=== PATIENT | female | born 1965 | race Caucasian/White ===

== ENCOUNTER 2017-01-06 06:33 | Day surgery (SDC) | payer BC ==
[~2017-01-06] VITALS: Ht 160 cm; Wt 80.5 kg
[~2017-01-06 06:33] MED LIST: AMLO-145 PO
[2017-01-06] MEDS ORDERED: MINTOX (07:38)
[2017-01-06] MEDS ORDERED: [UNRECOGNIZED DRUG - OTHER] (07:38)
[2017-01-06] MEDS ORDERED: METOCLOPRAMIDE (07:38)
[2017-01-06] MEDS ORDERED: CLONAZEPAM (07:38)
[2017-01-06] MEDS ORDERED: TEMAZEPAM (07:38)
[2017-01-06] MEDS ORDERED: OMEPRAZOLE (07:38)
[2017-01-06] MEDS ORDERED: HYOSCYAMINE (07:38)
[2017-01-06] MEDS ORDERED: DOCUSATE SODIUM (07:38)
[2017-01-06] MEDS ORDERED: METFORMIN (07:38)
--- NOTE | 2017-01-06 08:56 | OPPN ---
Date/Time of Note Date/Time of Note DATE: 01/06/17 TIME: 08:54 Operative Report Preoperative Diagnosis Epigastric pain and colon cancer screening Postoperative Diagnosis Epigastric pain and colon cancer screening Operation/Procedure Performed 1. EGD with a biopsy gastritis, duodenitis 2. Colonoscopy with the hot snare polypectomy Ascending colon polyp 2 cm hot snare polypectomy, transverse colon 2 cm hot snare polypectomy Poor prep Hemorrhoids Provider: TRACY GRANT MD Anesthesia Type: MAC Estimated blood loss: none Transfusion Required: no Specimen: none Grafts/Implants: none Complications: no TRACY GRANT MD Jan 06, 2017 08:56
[2017-01-06 09:35] VITALS: BP 138/79; PULSE 66; RESP 18
--- NOTE | 2017-01-06 10:19 | GILP ---
DATE OF PROCEDURE: 01/04/2017 PROCEDURE PERFORMED: Esophagogastroduodenoscopy with biopsy and colonoscopy with polypectomy. INDICATIONS FOR PROCEDURE: A 51-year-old female undergoing this procedure for epigastric pain, persistent for last few months and a colonoscopy for colon cancer screening. She also complains of nausea and heartburn. The purpose of this procedure is to evaluate the upper GI tract to find out the cause of her epigastric pain and nausea and colonoscopy for colon cancer screening. The risks of the procedure, and related complications, and anesthetic risks, alternatives discussed. Informed consent was obtained. DESCRIPTION OF PROCEDURE: The patient was brought to the GI lab, sedated by Dr. Melissa. After optimal sedation, scope was passed with much ease into the esophagus, which was grossly within normal limits. Z-line was normal. Stomach mucosa revealed gastritis. Multiple biopsies obtained. Totally 4 biopsies randomly obtained. Duodenal mucosa revealed duodenitis. Second part was within normal limits. Retroversion in the stomach was normal. Scope was straightened out and removed with good patient tolerance. ASSESSMENT: 1. Normal esophagus. 2. No varicose vein identified. 3. Z-line at 37 cm. 4. Gastritis. 5. Duodenitis. PLAN: Review histopathology. COLONOSCOPY REPORT: Patient was turned around. Digital examination done, which was normal. Scope was passed with much ease into the rectum, advanced through sigmoid, descending, transverse colon all the way into the cecum. Appendiceal orifice, IC valve identified. While coming out, mucosa thoroughly inspected. Cecum was filled with stool. Appendiceal orifice could not be seen. There was a 2 cm polyp in the ascending colon, successfully removed by hot snare technique. Polyp was retrieved. In the mid transverse colon, also, there was a 2 cm polyp successfully removed by hot snare technique. The patient had a mild diverticulosis. Rest of the colon appeared normal except for the hemorrhoids. IMPRESSION: 1. A 2 cm polyp in the ascending colon, successfully removed by hot snare technique. 2. A 2 cm polyp in the transverse colon, successfully removed by hot snare technique. 3. Hemorrhoids. 4. Diverticulosis. PLAN: Stay on high-fiber diet. Patient definitely needs a repeat colonoscopy because of poor prep in 1 year. Dictated By: Elder Guardado MD /darya/lisa /Document#: [id number] ; Dr. Willy Carl
== END 2017-01-06 13:19 | disposition home or self-care (01) ==
LOC: GIL 06:33
PROVIDERS: ATTEND Internal Medicine Gastroenterology
DX: D12.3 Benign neoplasm of transverse colon (principal); K29.70 Gastritis, unspecified, without bleeding; K29.80 Duodenitis without bleeding; K57.90 Diverticulosis of intestine, part unspecified, without perforation or abscess without bleeding; K64.8 Other hemorrhoids; E11.9 Type 2 diabetes mellitus without complications; E78.5 Hyperlipidemia, unspecified; I10 Essential (primary) hypertension; E66.01 Morbid (severe) obesity due to excess calories; Z68.31 Body mass index [BMI] 31.0-31.9, adult
CPT/HCPCS: 43239; 45380; 82962; 84703; 88305; Z7610